=== PATIENT | male | born 1965 | race Caucasian/White ===

== ENCOUNTER 2019-07-26 17:23 | Emergency (ER) | payer OTHER, SELFPAY ==
[2019-07-26 17:24] VITALS: BP 152/121; PULSE 106; RESP 17; TEMP 36.7; O2SAT 97; BMI 24.7
--- NOTE | 2019-07-26 17:42 | ED.DCSUM_ITS ---
- ER Visit Summary Date of Service: 07/26/19 Chief Complaint: Fall, back pain History of Present Illness: The patient is a 53 M who presents after a fall last night. He states that he fell going down steps and landed on his back. No head trauma or LOC. He has pain in the right lower portion of his back. Is worse with movement. He took no medications but did drink some beer today hoping that will help with the pain. He did fall 3 weeks ago and had negative x-rays at that time. He took Flexeril but he did not like the way it made him felt. He denies any fevers. No bowel or bladder incontinence. Physical Examination: Vital signs are reviewed. Back exam reveals tenderness in the lower right lumbar area. No midline tenderness. He has no thoracic tenderness. Pain is exacerbated with movement. His neurologic exam is normal. He is ambulating on his own. His reflexes bilaterally are normal. Test Results: Lumbar x-rays reveal chronic changes with no fractures Emergency Department Course and Treatment: Patient will be discharged with naproxen. He likely has a contusion. He will need to follow-up with his doctor Treatment Plan: [] Disposition: Discharge Impression: Lumbar contusion This note was generated with [employer] dictation software. It may contain incorrect words, spelling, and punctuation that were not noted in review of the chart prior to signing ED Disposition - Plan for ED Patient: Disposition: Home or Assisted Living Instructions: CONTUSION, Back Prescriptions: Naproxen [Naprosyn] 500 mg PO BID PRN #20 tab Transmission Status: Pending to [id number] Referrals: [facility] Doctor,Out of [NON-STAFF] -
[2019-07-26] MEDS: Naproxen 500 MG Tablet PO (17:48)
--- NOTE | 2019-07-26 17:57 | RAD_ITS ---
STUDY: X-RAY - LUMBAR SPINE REASON FOR EXAM: Male, 53 years old. FALL. LOWER BACK PAIN TECHNIQUE: 3 view(s) of the lumbar spine were obtained. COMPARISON: None FINDINGS: There is an exaggerated lumbar lordosis. There is no substantial scoliosis. There is a normal alignment of the vertebrae. Normal vertebral body height without a fracture deformity. Mild disc narrowing and spondylitic endplate changes at L3-4, L4-5 and L5-S1. The soft tissue structures are unremarkable. RAD/Lumbar Spine 2 or 3 Views IMPRESSION: Exaggerated lumbar lordosis with otherwise normal alignment. Negative for acute fracture of the lumbar spine. Mild degenerative disc narrowing and spondylitic endplate changes at L3-4, L4-5 and L5-S1. Electronically Signed: Kellie Moses MD at 18:33 EST , Service support ,
== END 2019-07-26 19:10 | disposition home or self-care (01) ==
PROVIDERS: Emergency Provider Emergency Medicine
DX: S30.0XXA Contusion of lower back and pelvis, initial encounter (principal); W10.9XXA Fall (on) (from) unspecified stairs and steps, initial encounter; Y93.9 Activity, unspecified; Y92.9 Unspecified place or not applicable; Y99.9 Unspecified external cause status; Z79.899 Other long term (current) drug therapy
CPT/HCPCS: 72100; 99282